=== PATIENT | male | born 1965 | race African-American/Black ===

== ENCOUNTER 2016-08-23 19:14 | Inpatient (IN) | payer OTHER ==
[2016-08-23 20:14] VITALS: BMI 24.3
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
[2016-08-23] MEDS ORDERED: MAGNESIUM HYDROX 2400MG/30ML ORAL SUSPENSION 30 ML CUP PO PRN (20:37)
[2016-08-23] MEDS ORDERED: MENTHOL/PHENOL 1 EACH UD MM PRN (20:37)
[2016-08-23] MEDS ORDERED: MAGNESIUM CITRATE 300 ML BOTTLE PO PRN (20:37)
[2016-08-23] MEDS ORDERED: chlordiazePOXIDE HCL 25 MG CAPSULE PO PRN (20:37)
[2016-08-23] MEDS ORDERED: hydrOXYzine PAMOATE 50 MG CAPSULE (FP) PO PRN (20:37)
[2016-08-23] MEDS ORDERED: IBUPROFEN 400 MG TABLET (FP) PO PRN (20:37)
[2016-08-23] MEDS ORDERED: NICOTINE POLACRILEX 2 MG GUM BC PRN (20:37)
[2016-08-23] MEDS ORDERED: diphenhydrAMINE HCL 50 MG CAPSULE PO PRN (20:37)
[2016-08-23] MEDS ORDERED: ACETAMINOPHEN 325 MG TABLET (FP) PO PRN (20:37)
[2016-08-23] MEDS ORDERED: P-EPHED 60MG/TRIPROLIDI 2.5MG TABLET PO PRN (20:37)
[2016-08-23] MEDS ORDERED: LOPERAMIDE HCL 2 MG CAPSULE PO PRN (20:37)
[2016-08-23] MEDS ORDERED: MAG HYDROX/AL HYDROX/SIMETH 30 ML UNIT-DOSE CUP PO PRN (20:37)
[2016-08-23 22:49] LABS: URINE APPEARANCE CLEAR; URINE BILIRUBIN NEGATIVE (NEGATIVE); URINE BLOOD 2+ (NEGATIVE); URINE COLOR DKYELLOW; URINE GLUCOSE (UA) NEGATIVE (NEGATIVE); URINE KETONE TRACE (NEGATIVE); URINE LEUK ESTERASE NEGATIVE (NEGATIVE); URINE NITRITE NEGATIVE (NEGATIVE); URINE PROTEIN 1+ (NEGATIVE); URINE UROBILINOGEN NEGATIVE E.U./dl (0.2-1.0)
[2016-08-23 22:52] LABS: URINE MUCUS MANY; URINE RBC 45 /hpf (0-3); URINE WBC 4 /hpf (3-5)
[2016-08-23] MEDS: chlordiazePOXIDE HCL 25 MG CAPSULE PO SCH (23:03)
[2016-08-23] MEDS: MONTELUKAST NA 10 MG TABLET PO SCH (23:04)
[2016-08-23] MEDS: THIAMINE HCL 100 MG TABLET (FP) PO SCH (23:04)
[2016-08-23] MEDS: NICOTINE 14 MG/24 HOURS TOPICAL PATCH TD SCH (23:05)
[2016-08-23] MEDS: guaiFENesin/D-METHORPHAN HB 10 ML UNIT-DOSE CUPS PO PRN (23:05)
[2016-08-24] MEDS: chlordiazePOXIDE HCL 25 MG CAPSULE PO SCH ×4 (05:13→22:30)
--- NOTE | 2016-08-24 08:34 | PN ---
S CIWA - CIWA Score Nausea/Vomitin Muscle Tremors: 3 Anxiety: 3 Agitation: 3 Paroxysmal Sweats: 1-Minimal Palms Moist Orientation: 0-Oriented Tacttile Disturbances: 1-Very Mild Itch/Numbness Auditory Disturbances: 1-Very Mild Visual Disturbances: 1-Very Mild Sensitivity Headache: 2-Mild CIWA-Ar Total Score: 18 S Progress Note (SOAP) Subjective: alert,irritable,anxious,interrupted sleep,tremor.pain in the body Objective: 08/24/16 08:29 Vital Signs Temperature 96.8 F L 08/24/16 06:12 Pulse Rate 51 L 08/24/16 06:12 Respiratory Rate 18 08/24/16 06:12 Blood Pressure 142/85 08/24/16 06:12 O2 Sat by Pulse Oximetry (%) ekg inverte p wave no chest pain,no sob,no dizziness 08/24/16 09:53 Laboratory Last Values Urine Color Dkyellow 08/23/16 22:28 Urine Appearance Clear 08/23/16 22:28 Urine pH 5.0 (5.0-8.0) 08/23/16 22:28 Urine Protein 1+ (NEGATIVE) H 08/23/16 22:28 Urine Glucose (UA) Negative (NEGATIVE) 08/23/16 22:28 Urine Ketones Trace (NEGATIVE) H 08/23/16 22:28 Urine Blood 2+ (NEGATIVE) H 08/23/16 22:28 Urine Nitrite Negative (NEGATIVE) 08/23/16 22:28 Urine Bilirubin Negative (NEGATIVE) 08/23/16 22:28 Urine Urobilinogen Negative E.U./dl (0.2-1.0) 08/23/16 22:28 Ur Leukocyte Esterase Negative (NEGATIVE) 08/23/16 22:28 Urine RBC 45 /hpf (0-3) 08/23/16 22:28 Urine WBC 4 /hpf (3-5) 08/23/16 22:28 Ur Epithelial Cells Rare /hpf (FEW) 08/23/16 22:28 Urine Mucus Many 08/23/16 22:28 labs pending Assessment: 08/24/16 09:54 withdrawal symptom Plan: continue detox,repeat ua
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
[2016-08-24 10:03] LABS: MCH 33.3 pg (25.7-33.7); MCHC 33.7 g/dl (32.0-35.9); MEAN CELL VOLUME 98.6 fl (80-96); MEAN PLT VOLUME 7.8 fl (7.5-11.1); PLATELET COUNT 177 K/MM3 (134-434); RDW 13.7 % (11.9-15.9); WHITE BLOOD COUNT 5.6 K/mm3 (4.0-10.0)
[2016-08-24 10:49] LABS: ALBUMIN 3.5 g/dl (3.4-5.0); ALK PHOS 67 U/L (45-117); ANION GAP 9 (8-16); BILIRUBIN,TOTAL 1.3 mg/dL (0.2-1.0); CALCIUM 8.5 mg/dL (8.5-10.1); CO2 25 mmol/L (21-32); COCKROFT - GAULT 175.55; CREATININE 0.6 mg/dL (0.7-1.3); GLUCOSE,RANDOM 81 mg/dL (74-106); SGOT/AST 65 U/L (15-37); SGPT/ALT 60 U/L (12-78)
[2016-08-24] MEDS: NICOTINE 14 MG/24 HOURS TOPICAL PATCH TD SCH (11:50)
[2016-08-24] MEDS: PRENATAL VITAMINS W/ FOLIC ACID TABLET (FP) PO SCH (11:51)
[2016-08-24] MEDS: PANTOPRAZOLE 20 MG TABLET (FP) PO SCH (11:51)
--- NOTE | 2016-08-24 12:50 | EKG ---
Test Reason : Blood Pressure : / mmHG Vent. Rate : 054 BPM Atrial Rate : 054 BPM P-R Int : 146 ms QRS Dur : 102 ms QT Int : 434 ms P-R-T Axes : 269 050 042 degrees QTc Int : 411 ms UNUSUAL P AXIS, POSSIBLE ECTOPIC ATRIAL BRADYCARDIA INCOMPLETE RIGHT BUNDLE BRANCH BLOCK ABNORMAL ECG NO PREVIOUS ECGS AVAILABLE Confirmed by GERSON FLEMING MD ([id number]) on 08/24/2016 12:49:51 PM Referred By: Confirmed By:GERSON FLEMING MD
[2016-08-24] MEDS: ALBUTEROL SO4 6.7 GM HFA INHALER IH PRN (19:46)
[2016-08-24] MEDS: THIAMINE HCL 100 MG TABLET (FP) PO SCH (22:31)
[2016-08-24] MEDS: MONTELUKAST NA 10 MG TABLET PO SCH (22:31)
[2016-08-25] MEDS: chlordiazePOXIDE HCL 25 MG CAPSULE PO SCH ×3 (05:58→17:35)
[2016-08-25] MEDS: ALBUTEROL SO4 6.7 GM HFA INHALER IH PRN ×2 (05:59→22:20)
[2016-08-25] MEDS: PRENATAL VITAMINS W/ FOLIC ACID TABLET (FP) PO SCH (11:21)
[2016-08-25] MEDS: PANTOPRAZOLE 20 MG TABLET (FP) PO SCH (11:21)
[2016-08-25] MEDS: NICOTINE 14 MG/24 HOURS TOPICAL PATCH TD SCH (11:22)
[2016-08-25] MEDS ORDERED: ALBUTEROL SO4 2.5/IPRATROPIUM 0.5 INH SOL 3 ML VIAL.NEB. NEB PRN (11:32)
--- NOTE | 2016-08-25 11:36 | PN ---
S CIWA - CIWA Score Nausea/Vomitin Muscle Tremors: 3 Anxiety: 3 Agitation: 2 Paroxysmal Sweats: 1-Minimal Palms Moist Orientation: 0-Oriented Tacttile Disturbances: 1-Very Mild Itch/Numbness Auditory Disturbances: 1-Very Mild Visual Disturbances: 1-Very Mild Sensitivity Headache: 2-Mild CIWA-Ar Total Score: 17 BHS Progress Note (SOAP) Subjective: ALERT,IRRITABLE,ANXIOUS,INTERRUPTED ,PAIN IN THE BODY Objective: 08/25/16 11:35 Vital Signs Temperature 97.5 F L 08/25/16 09:41 Pulse Rate 84 08/25/16 09:41 Respiratory Rate 18 08/25/16 09:41 Blood Pressure 131/84 08/25/16 09:41 O2 Sat by Pulse Oximetry (%) 08/25/16 11:36 Assessment: 08/25/16 11:36 WITHDRAWAL SYMPTOM Plan: REPEAT UA ,CONTINUE DETOX
[2016-08-25] MEDS: BUDESONIDE/FORMETEROL FUMARATE 80/4.5 mcg INHALER IH SCH ×2 (12:29→22:20)
[2016-08-25] MEDS: NAPROXEN 500 MG TABLET (FP) PO SCH ×2 (12:29→22:20)
[2016-08-25] MEDS: LISINOPRIL 10 MG TABLET (FP) PO SCH (13:03)
[2016-08-25] MEDS: MONTELUKAST NA 10 MG TABLET PO SCH (22:15)
[2016-08-25] MEDS: THIAMINE HCL 100 MG TABLET (FP) PO SCH (22:15)
[2016-08-25] MEDS: chlordiazePOXIDE 5 MG CAPSULE PO SCH (22:16)
[2016-08-26] MEDS: chlordiazePOXIDE 5 MG CAPSULE PO SCH (06:04)
[2016-08-26] MEDS: ALBUTEROL SO4 6.7 GM HFA INHALER IH PRN (06:09)
[2016-08-26] MEDS: guaiFENesin/D-METHORPHAN HB 10 ML UNIT-DOSE CUPS PO PRN (06:09)
--- NOTE | 2016-08-26 09:31 | PN ---
S Progress Note (SOAP) Subjective: alert,irritable,interrupted sleep,dry eye Objective: 08/26/16 09:30 Vital Signs Temperature 97.0 F L 08/26/16 06:50 Pulse Rate 62 08/26/16 06:50 Respiratory Rate 18 08/26/16 06:50 Blood Pressure 121/73 08/26/16 06:50 O2 Sat by Pulse Oximetry (%) Assessment: 08/26/16 09:30 withdrawal symptom Plan: continue detox,discharge in am
[2016-08-26] MEDS ORDERED: ARTIFICIAL TEARS (POLYVINYL ALCOHOL 1.4%) OPTH DROPS OU SCH (10:00)
[2016-08-26 10:11] VITALS: BP 116/73; PULSE 67; TEMP 97
[2016-08-26] MEDS: BUDESONIDE/FORMETEROL FUMARATE 80/4.5 mcg INHALER IH SCH (10:15)
[2016-08-26] MEDS: NICOTINE 14 MG/24 HOURS TOPICAL PATCH TD SCH (10:15)
[2016-08-26] MEDS: NAPROXEN 500 MG TABLET (FP) PO SCH (10:15)
[2016-08-26] MEDS: LISINOPRIL 10 MG TABLET (FP) PO SCH (10:15)
[2016-08-26] MEDS: PANTOPRAZOLE 20 MG TABLET (FP) PO SCH (10:15)
[2016-08-26] MEDS: PRENATAL VITAMINS W/ FOLIC ACID TABLET (FP) PO SCH (10:15)
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
[2016-08-26 17:10] LABS: URINE APPEARANCE CLEAR; URINE BILIRUBIN NEGATIVE (NEGATIVE); URINE BLOOD NEGATIVE (NEGATIVE); URINE COLOR LTYELLOW; URINE GLUCOSE (UA) NEGATIVE (NEGATIVE); URINE KETONE NEGATIVE (NEGATIVE); URINE LEUK ESTERASE NEGATIVE (NEGATIVE); URINE NITRITE NEGATIVE (NEGATIVE); URINE PROTEIN NEGATIVE (NEGATIVE); URINE UROBILINOGEN NEGATIVE E.U./dl (0.2-1.0)
[2016-08-26] MEDS ORDERED: chlordiazePOXIDE HCL 10 MG CAPSULE PO SCH (23:00)
== END 2016-08-26 10:40 | disposition home or self-care (01) | DRG 774 ==
LOC: YASAS 19:14 → Y6N 21:26
PROVIDERS: ADMIT Internal Medicine; ATTEND Internal Medicine
PROC: HZ2ZZZZ Detoxification Services for Substance Abuse Treatment (ICD-10-PCS; principal; 2016-08-23)
DX: F10.230 Alcohol dependence with withdrawal, uncomplicated (principal); F14.20 Cocaine dependence, uncomplicated; F12.20 Cannabis dependence, uncomplicated; F17.210 Nicotine dependence, cigarettes, uncomplicated; F91.8 Other conduct disorders; F19.24 Other psychoactive substance dependence with psychoactive substance-induced mood disorder; J45.20 Mild intermittent asthma, uncomplicated; K21.9 Gastro-esophageal reflux disease without esophagitis; H91.93 Unspecified hearing loss, bilateral
CPT/HCPCS: 36415; 71020-TC; 80053; 81003; 81015; 85027; 86593; 86803; 93005; 93010

== ENCOUNTER 2019-01-02 13:37 | Inpatient (IN) | payer OTHER ==
[2019-01-02 16:08] VITALS: BMI 23.2
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
[2019-01-02] MEDS ORDERED: METHOCARBAMOL 500 MG TABLET PO PRN (20:54)
[2019-01-02] MEDS ORDERED: ACETAMINOPHEN 325 MG TABLET (FP) PO PRN ×2 (20:54)
[2019-01-02] MEDS ORDERED: NICOTINE POLACRILEX 2 MG GUM BUC PRN (20:54)
[2019-01-02] MEDS ORDERED: IBUPROFEN 400 MG TABLET (FP) PO PRN (20:54)
[2019-01-02] MEDS ORDERED: MELATONIN 5 MG TABLETS PO PRN (20:54)
[2019-01-02] MEDS ORDERED: BISMUTH SUBSALICYLATE 524 MG/30 ML UD PO PRN (20:54)
[2019-01-02] MEDS ORDERED: chlordiazePOXIDE HCL 10 MG CAPSULE PO PRN (20:54)
[2019-01-02] MEDS ORDERED: MAGNESIUM HYDROX 2400MG/30ML ORAL SUSPENSION 30 ML CUP PO PRN (20:54)
[2019-01-02] MEDS ORDERED: MAG HYDROX/AL HYDROX/SIMETH 30 ML UNIT-DOSE CUP PO PRN (20:54)
[2019-01-02] MEDS ORDERED: MAGNESIUM CITRATE 300 ML BOTTLE PO PRN (20:54)
[2019-01-02] MEDS ORDERED: MENTHOL/PHENOL 1 EACH UD MM PRN (20:54)
[2019-01-02] MEDS: THIAMINE HCL 100 MG TABLET (FP) PO SCH (22:39)
[2019-01-02] MEDS: chlordiazePOXIDE HCL 25 MG CAPSULE PO SCH (22:39)
[2019-01-02] MEDS: MONTELUKAST NA 10 MG TABLET PO SCH (22:40)
[2019-01-02] MEDS ORDERED: ALBUTEROL SO4 8 GM HFA INHALER IH PRN (22:46)
[2019-01-03] MEDS: chlordiazePOXIDE HCL 25 MG CAPSULE PO SCH ×3 (05:10→22:16)
[2019-01-03] MEDS: PATIENT'S OWN MEDICATION (NON-FORMULARY) (Amoxicillin/Potassium Clav [Augmentin 875-125 Ta PO SCH ×2 (09:55→22:14)
[2019-01-03] MEDS: PANTOPRAZOLE 20 MG TABLET (FP) PO SCH (09:56)
[2019-01-03] MEDS: NICOTINE 14 MG/24 HOURS TOPICAL PATCH TD SCH (09:56)
[2019-01-03] MEDS: LOSARTAN POTASSIUM 25 MG TABLET PO SCH (09:56)
[2019-01-03] MEDS: PRENATAL VITAMINS W/ FOLIC ACID TABLET (FP) PO SCH (09:56)
[2019-01-03 10:01] LABS: EPI CELLS 0.2 /HPF (0-5/HPF); HYALINE CASTS 1 /lpf (0-8); PH,URINE 5.5 (5.0-8.0); URINE APPEARANCE CLEAR; URINE BACTERIA 1.4 /hpf (NEGATIVE); URINE BILIRUBIN NEGATIVE (NEGATIVE); URINE COLOR YELLOW; URINE GLUCOSE (UA) NEGATIVE (NEGATIVE); URINE KETONE NEGATIVE (NEGATIVE); URINE LEUK ESTERASE NEGATIVE (NEGATIVE); URINE NITRITE NEGATIVE (NEGATIVE); URINE PROTEIN NEGATIVE (NEGATIVE); URINE RBC 3 /hpf (0-4); URINE WBC 0 /hpf (0-5)
[2019-01-03 10:04] LABS: HEMATOCRIT 42.7 % (35.4-49); HEMOGLOBIN 14.4 GM/dL (11.7-16.9); MCH 33.6 pg (25.7-33.7); MCHC 33.8 g/dl (32.0-35.9); MEAN CELL VOLUME 99.4 fl (80-96); MEAN PLT VOLUME 8.6 fl (7.5-11.1); PLATELET COUNT 261 K/MM3 (134-434); RBC 4.29 M/mm3 (4.00-5.60); RDW 13.2 % (11.9-15.9); WHITE BLOOD COUNT 6.6 K/mm3 (4.0-10.0)
[2019-01-03] MEDS: ALBUTEROL SO4 8 GM HFA INHALER IH PRN ×2 (10:04→19:22)
[2019-01-03 10:12] LABS: ALBUMIN 3.8 g/dl (3.4-5.0); BILIRUBIN,TOTAL 0.7 mg/dL (0.2-1); BLOOD UREA NITROGEN 16.2 mg/dL (7-18); CALCIUM 9.2 mg/dL (8.5-10.1); CREATININE 0.8 mg/dL (0.55-1.3); POTASSIUM 4.3 mmol/L (3.5-5.1); TOT PROT 6.6 g/dl (6.4-8.2)
--- NOTE | 2019-01-03 12:11 | PN ---
[facility] CIWA - CIWA Score Nausea/Vomitin-Mild Nausea/No Vomiting Muscle Tremors: 3 Anxiety: 4-Mod. Anxious/Guarded Agitation: 2 Paroxysmal Sweats: 2 Orientation: 0-Oriented Tacttile Disturbances: 0-None Auditory Disturbances: 0-None Visual Disturbances: 0-None Headache: 1-Very Mild CIWA-Ar Total Score: 13 S Progress Note (SOAP) Subjective: doing well with librium detox regimen ambulating on hallway attend group and meeting tremor with mild anxiety Objective: 01/03/19 12:10 Vital Signs Temperature 97.3 F L 01/03/19 09:16 Pulse Rate 66 01/03/19 09:16 Respiratory Rate 18 01/03/19 09:16 Blood Pressure 124/79 01/03/19 09:16 O2 Sat by Pulse Oximetry (%) Laboratory Last Values WBC 6.6 K/mm3 (4.0-10.0) 01/03/19 08:15 RBC 4.29 M/mm3 (4.00-5.60) 01/03/19 08:15 Hgb 14.4 GM/dL (11.7-16.9) 01/03/19 08:15 Hct 42.7 % (35.4-49) 01/03/19 08:15 MCV 99.4 fl (80-96) H 01/03/19 08:15 MCH 33.6 pg (25.7-33.7) 01/03/19 08:15 MCHC 33.8 g/dl (32.0-35.9) 01/03/19 08:15 RDW 13.2 % (11.9-15.9) 01/03/19 08:15 Plt Count 261 K/MM3 (134-434) D 01/03/19 08:15 MPV 8.6 fl (7.5-11.1) D 01/03/19 08:15 Sodium 141 mmol/L (136-145) 01/03/19 08:15 Potassium 4.3 mmol/L (3.5-5.1) 01/03/19 08:15 Chloride 106 mmol/L (98-107) 01/03/19 08:15 Carbon Dioxide 28 mmol/L (21-32) 01/03/19 08:15 Anion Gap 6 MMOL/L (8-16) L 01/03/19 08:15 BUN 16.2 mg/dL (7-18) 01/03/19 08:15 Creatinine 0.8 mg/dL (0.55-1.3) 01/03/19 08:15 Est GFR (CKD-EPI)AfAm 117.38 01/03/19 08:15 Est GFR (CKD-EPI)NonAf 101.27 01/03/19 08:15 Random Glucose 55 mg/dL (74-106) L 01/03/19 08:15 Calcium 9.2 mg/dL (8.5-10.1) 01/03/19 08:15 Total Bilirubin 0.7 mg/dL (0.2-1) 01/03/19 08:15 AST 17 U/L (15-37) 01/03/19 08:15 ALT 27 U/L (13-61) 01/03/19 08:15 Alkaline Phosphatase 76 U/L (45-117) 01/03/19 08:15 Total Protein 6.6 g/dl (6.4-8.2) 01/03/19 08:15 Albumin 3.8 g/dl (3.4-5.0) 01/03/19 08:15 Urine Color Yellow 01/03/19 08:15 Urine Appearance Clear 01/03/19 08:15 Urine pH 5.5 (5.0-8.0) 01/03/19 08:15 Ur Specific [place] 1.022 (1.010-1.035) 01/03/19 08:15 Urine Protein Negative (NEGATIVE) 01/03/19 08:15 Urine Glucose (UA) Negative (NEGATIVE) 01/03/19 08:15 Urine Ketones Negative (NEGATIVE) 01/03/19 08:15 Urine Blood 1+ (NEGATIVE) H 01/03/19 08:15 Urine Nitrite Negative (NEGATIVE) 01/03/19 08:15 Urine Bilirubin Negative (NEGATIVE) 01/03/19 08:15 Urine Urobilinogen 1.0 mg/dL (0.2-1.0) 01/03/19 08:15 Ur Leukocyte Esterase Negative (NEGATIVE) 01/03/19 08:15 Urine WBC (Auto) 0 /hpf (0-5) 01/03/19 08:15 Urine RBC (Auto) 3 /hpf (0-4) 01/03/19 08:15 Urine Casts (Auto) 1 /lpf (0-8) 01/03/19 08:15 U Epithel Cells (Auto) 0.2 /HPF (0-5/HPF) 01/03/19 08:15 Urine Bacteria (Auto) 1.4 /hpf (NEGATIVE) 01/03/19 08:15 lab noted Assessment: 01/03/19 12:11 alcohol withdrawal sx Plan: continue librium detox regimen
[2019-01-03] MEDS: guaiFENesin 600 MG TABLET.ER (FP) PO SCH ×2 (13:30→22:15)
--- NOTE | 2019-01-03 13:37 | EKG ---
Test Reason : Blood Pressure : / mmHG Vent. Rate : 061 BPM Atrial Rate : 061 BPM P-R Int : 142 ms QRS Dur : 104 ms QT Int : 428 ms P-R-T Axes : 009 032 006 degrees QTc Int : 430 ms NORMAL SINUS RHYTHM WITH SINUS ARRHYTHMIA INCOMPLETE RIGHT BUNDLE BRANCH BLOCK BORDERLINE ECG WHEN COMPARED WITH ECG OF 23-AUG-2016 22:08, SINUS RHYTHM HAS REPLACED ECTOPIC ATRIAL RHYTHM Confirmed by MICHAEL MORILLO, NEREYDA ([id number]) on 01/03/2019 1:36:50 PM Referred By: Confirmed By:NEREYDA RODRIGUEZ MD
[2019-01-03] MEDS: MONTELUKAST NA 10 MG TABLET PO SCH (22:15)
[2019-01-03] MEDS: THIAMINE HCL 100 MG TABLET (FP) PO SCH (22:15)
[2019-01-04] MEDS: ALBUTEROL SO4 8 GM HFA INHALER IH PRN (03:45)
[2019-01-04] MEDS: chlordiazePOXIDE 5 MG CAPSULE PO SCH ×3 (06:43→21:55)
[2019-01-04] MEDS: PATIENT'S OWN MEDICATION (NON-FORMULARY) (Amoxicillin/Potassium Clav [Augmentin 875-125 Ta PO SCH ×2 (10:08→21:55)
[2019-01-04] MEDS: PANTOPRAZOLE 20 MG TABLET (FP) PO SCH (10:08)
[2019-01-04] MEDS: PRENATAL VITAMINS W/ FOLIC ACID TABLET (FP) PO SCH (10:08)
[2019-01-04] MEDS: LOSARTAN POTASSIUM 25 MG TABLET PO SCH (10:09)
[2019-01-04] MEDS: NICOTINE 14 MG/24 HOURS TOPICAL PATCH TD SCH (10:09)
[2019-01-04] MEDS: BUDESONIDE/FORMETEROL FUMARATE 80/4.5 mcg INHALER IH SCH ×2 (11:38→21:55)
[2019-01-04] MEDS: guaiFENesin 200 MG/10 ML 10 ML UNIT-DOSE CUPS PO PRN ×2 (11:39→17:43)
[2019-01-04] MEDS: ARTIFICIAL TEARS (POLYVINYL ALCOHOL) OPTH DROPS OU PRN ×2 (11:39→17:44)
--- NOTE | 2019-01-04 16:44 | PN ---
S CIWA - CIWA Score Nausea/Vomitin-No Nausea/No Vomiting Muscle Tremors: 2 Anxiety: 3 Agitation: 4-Moderately Restless Paroxysmal Sweats: 3 Orientation: 0-Oriented Tacttile Disturbances: 0-None Auditory Disturbances: 0-None Visual Disturbances: 0-None Headache: 0-None Present CIWA-Ar Total Score: 12 BHS Progress Note (SOAP) Subjective: Anxious, Tremors, Sweating, Restless. Objective: PATIENT A & O X 3, OBSERVED AMBULATING ON DETOX UNIT UNASSISTED. IN NO ACUTE DISTRESS. 01/04/19 16:45 Vital Signs Temperature 97.0 F L 01/04/19 13:26 Pulse Rate 60 01/04/19 13:26 Respiratory Rate 18 01/04/19 13:26 Blood Pressure 113/67 01/04/19 13:26 O2 Sat by Pulse Oximetry (%) Laboratory Tests 01/03/19 01/03/19 01/03/19 08:15 08:15 08:15 WBC 6.6 RBC 4.29 Hgb 14.4 Hct 42.7 MCV 99.4 H MCH 33.6 MCHC 33.8 RDW 13.2 Plt Count 261 D MPV 8.6 D Sodium 141 Potassium 4.3 Chloride 106 Carbon Dioxide 28 Anion Gap 6 L BUN 16.2 Creatinine 0.8 Est GFR (CKD-EPI)AfAm 117.38 Est GFR (CKD-EPI)NonAf 101.27 Random Glucose 55 L Calcium 9.2 Total Bilirubin 0.7 AST 17 ALT 27 Alkaline Phosphatase 76 Total Protein 6.6 Albumin 3.8 Urine Color Urine Appearance Urine pH Ur Specific [place] Urine Protein Urine Glucose (UA) Urine Ketones Urine Blood Urine Nitrite Urine Bilirubin Urine Urobilinogen Ur Leukocyte Esterase Urine WBC (Auto) Urine RBC (Auto) Urine Casts (Auto) U Epithel Cells (Auto) Urine Bacteria (Auto) RPR Titer Nonreactive 01/03/19 08:15 WBC RBC Hgb Hct MCV MCH MCHC RDW Plt Count MPV Sodium Potassium Chloride Carbon Dioxide Anion Gap BUN Creatinine Est GFR (CKD-EPI)AfAm Est GFR (CKD-EPI)NonAf Random Glucose Calcium Total Bilirubin AST ALT Alkaline Phosphatase Total Protein Albumin Urine Color Yellow Urine Appearance Clear Urine pH 5.5 Ur Specific [place] 1.022 Urine Protein Negative Urine Glucose (UA) Negative Urine Ketones Negative Urine Blood 1+ H Urine Nitrite Negative Urine Bilirubin Negative Urine Urobilinogen 1.0 Ur Leukocyte Esterase Negative Urine WBC (Auto) 0 Urine RBC (Auto) 3 Urine Casts (Auto) 1 U Epithel Cells (Auto) 0.2 Urine Bacteria (Auto) 1.4 RPR Titer LABS NOTED. Assessment: 01/04/19 16:45 WITHDRAWAL SYMPTOMS. Plan: CONTINUE DETOX. INCREASE DAILY PO WATER INTAKE.
[2019-01-04] MEDS: MONTELUKAST NA 10 MG TABLET PO SCH (21:55)
[2019-01-04] MEDS: THIAMINE HCL 100 MG TABLET (FP) PO SCH (21:56)
[2019-01-05] MEDS ORDERED: chlordiazePOXIDE HCL 10 MG CAPSULE PO PRN
[2019-01-05] MEDS: ARTIFICIAL TEARS (POLYVINYL ALCOHOL) OPTH DROPS OU PRN ×3 (03:39→18:23)
[2019-01-05] MEDS: guaiFENesin 200 MG/10 ML 10 ML UNIT-DOSE CUPS PO PRN ×2 (03:39→14:43)
[2019-01-05] MEDS: ALBUTEROL SO4 8 GM HFA INHALER IH PRN ×4 (03:40→18:25)
[2019-01-05] MEDS: chlordiazePOXIDE HCL 10 MG CAPSULE PO SCH ×3 (05:00→22:42)
[2019-01-05] MEDS: PATIENT'S OWN MEDICATION (NON-FORMULARY) (Amoxicillin/Potassium Clav [Augmentin 875-125 Ta PO SCH ×2 (10:12→22:42)
[2019-01-05] MEDS: LOSARTAN POTASSIUM 25 MG TABLET PO SCH (10:13)
[2019-01-05] MEDS: PANTOPRAZOLE 20 MG TABLET (FP) PO SCH (10:13)
[2019-01-05] MEDS: NICOTINE 14 MG/24 HOURS TOPICAL PATCH TD SCH (10:13)
[2019-01-05] MEDS: BUDESONIDE/FORMETEROL FUMARATE 80/4.5 mcg INHALER IH SCH ×2 (10:14→22:42)
[2019-01-05] MEDS: PRENATAL VITAMINS W/ FOLIC ACID TABLET (FP) PO SCH (10:14)
[2019-01-05] MEDS: AMMONIUM LACTATE 12% LOTION 225 GM BOTTLE TP SCH ×2 (11:52→22:42)
--- NOTE | 2019-01-05 17:06 | PN ---
S CIWA - CIWA Score Nausea/Vomitin-No Nausea/No Vomiting Muscle Tremors: 3 Anxiety: 2 Agitation: 2 Paroxysmal Sweats: 3 Orientation: 0-Oriented Tacttile Disturbances: 0-None Auditory Disturbances: 0-None Visual Disturbances: 0-None Headache: 0-None Present CIWA-Ar Total Score: 10 BHS Progress Note (SOAP) Subjective: Anxious, Tremors, Sweating. Objective: PATIENT A & O X 3, OBSERVED AMBULATING ON DETOX UNIT UNASSISTED. IN NO ACUTE DISTRESS. RESULTS OF DETOX ADMISSION CXR (FOR HISTORY OF POSITIVE PPD) NOTED. NO ACUTE CHEST PATHOLOGY NOTED ON REPORT. 01/05/19 17:09 Vital Signs Temperature 96.2 F L 01/05/19 09:53 Pulse Rate 70 01/05/19 09:53 Respiratory Rate 18 01/05/19 09:53 Blood Pressure 118/67 01/05/19 09:53 O2 Sat by Pulse Oximetry (%) Laboratory Tests 01/03/19 01/03/19 01/03/19 08:15 08:15 08:15 WBC 6.6 RBC 4.29 Hgb 14.4 Hct 42.7 MCV 99.4 H MCH 33.6 MCHC 33.8 RDW 13.2 Plt Count 261 D MPV 8.6 D Sodium 141 Potassium 4.3 Chloride 106 Carbon Dioxide 28 Anion Gap 6 L BUN 16.2 Creatinine 0.8 Est GFR (CKD-EPI)AfAm 117.38 Est GFR (CKD-EPI)NonAf 101.27 Random Glucose 55 L Calcium 9.2 Total Bilirubin 0.7 AST 17 ALT 27 Alkaline Phosphatase 76 Total Protein 6.6 Albumin 3.8 Urine Color Urine Appearance Urine pH Ur Specific [place] Urine Protein Urine Glucose (UA) Urine Ketones Urine Blood Urine Nitrite Urine Bilirubin Urine Urobilinogen Ur Leukocyte Esterase Urine WBC (Auto) Urine RBC (Auto) Urine Casts (Auto) U Epithel Cells (Auto) Urine Bacteria (Auto) RPR Titer Nonreactive 01/03/19 08:15 WBC RBC Hgb Hct MCV MCH MCHC RDW Plt Count MPV Sodium Potassium Chloride Carbon Dioxide Anion Gap BUN Creatinine Est GFR (CKD-EPI)AfAm Est GFR (CKD-EPI)NonAf Random Glucose Calcium Total Bilirubin AST ALT Alkaline Phosphatase Total Protein Albumin Urine Color Yellow Urine Appearance Clear Urine pH 5.5 Ur Specific [place] 1.022 Urine Protein Negative Urine Glucose (UA) Negative Urine Ketones Negative Urine Blood 1+ H Urine Nitrite Negative Urine Bilirubin Negative Urine Urobilinogen 1.0 Ur Leukocyte Esterase Negative Urine WBC (Auto) 0 Urine RBC (Auto) 3 Urine Casts (Auto) 1 U Epithel Cells (Auto) 0.2 Urine Bacteria (Auto) 1.4 RPR Titer LABS NOTED. 01/05/19 17:11 01/05/19 17:12 Assessment: 01/05/19 17:09 WITHDRAWAL SYMPTOMS. Plan: CONTINUE DETOX.
[2019-01-05] MEDS: THIAMINE HCL 100 MG TABLET (FP) PO SCH (22:42)
[2019-01-05] MEDS: MONTELUKAST NA 10 MG TABLET PO SCH (22:42)
[2019-01-06] MEDS: ALBUTEROL SO4 8 GM HFA INHALER IH PRN (02:14)
[2019-01-06] MEDS: guaiFENesin 200 MG/10 ML 10 ML UNIT-DOSE CUPS PO PRN ×2 (02:14→10:43)
[2019-01-06] MEDS: ARTIFICIAL TEARS (POLYVINYL ALCOHOL) OPTH DROPS OU PRN (02:16)
[2019-01-06] MEDS ORDERED: chlordiazePOXIDE HCL 10 MG CAPSULE PO ONE (05:00)
[2019-01-06] MEDS: LOSARTAN POTASSIUM 25 MG TABLET PO SCH (10:25)
[2019-01-06] MEDS: PANTOPRAZOLE 20 MG TABLET (FP) PO SCH (10:25)
[2019-01-06] MEDS: PRENATAL VITAMINS W/ FOLIC ACID TABLET (FP) PO SCH (10:25)
[2019-01-06] MEDS: PATIENT'S OWN MEDICATION (NON-FORMULARY) (Amoxicillin/Potassium Clav [Augmentin 875-125 Ta PO SCH (10:25)
[2019-01-06] MEDS: AMMONIUM LACTATE 12% LOTION 225 GM BOTTLE TP SCH (10:27)
[2019-01-06] MEDS: BUDESONIDE/FORMETEROL FUMARATE 80/4.5 mcg INHALER IH SCH (11:13)
[2019-01-06] MEDS: NICOTINE 14 MG/24 HOURS TOPICAL PATCH TD SCH (11:13)
--- NOTE | 2019-01-06 11:18 | PN ---
[facility] CIWA - CIWA Score Nausea/Vomitin-Mild Nausea/No Vomiting Muscle Tremors: 3 Anxiety: 2 Agitation: 2 Paroxysmal Sweats: 2 Orientation: 1-Uncertain about Date Tacttile Disturbances: 0-None Auditory Disturbances: 0-None Visual Disturbances: 0-None Headache: 1-Very Mild CIWA-Ar Total Score: 12 S Progress Note (SOAP) Subjective: 53 years old male admitted on 01/02/19 for alcohol withdrawal sx management treated with librium detox regimen patient tolerate well at this time patient continue experiencing alcohol withdrawal sx today additional librium 5 mg po Objective: 01/06/19 11:17 Vital Signs Temperature 96.7 F L 01/06/19 09:15 Pulse Rate 72 01/06/19 09:15 Respiratory Rate 18 01/06/19 09:15 Blood Pressure 115/77 01/06/19 09:15 O2 Sat by Pulse Oximetry (%) Laboratory Last Values WBC 6.6 K/mm3 (4.0-10.0) 01/03/19 08:15 RBC 4.29 M/mm3 (4.00-5.60) 01/03/19 08:15 Hgb 14.4 GM/dL (11.7-16.9) 01/03/19 08:15 Hct 42.7 % (35.4-49) 01/03/19 08:15 MCV 99.4 fl (80-96) H 01/03/19 08:15 MCH 33.6 pg (25.7-33.7) 01/03/19 08:15 MCHC 33.8 g/dl (32.0-35.9) 01/03/19 08:15 RDW 13.2 % (11.9-15.9) 01/03/19 08:15 Plt Count 261 K/MM3 (134-434) D 01/03/19 08:15 MPV 8.6 fl (7.5-11.1) D 01/03/19 08:15 Sodium 141 mmol/L (136-145) 01/03/19 08:15 Potassium 4.3 mmol/L (3.5-5.1) 01/03/19 08:15 Chloride 106 mmol/L (98-107) 01/03/19 08:15 Carbon Dioxide 28 mmol/L (21-32) 01/03/19 08:15 Anion Gap 6 MMOL/L (8-16) L 01/03/19 08:15 BUN 16.2 mg/dL (7-18) 01/03/19 08:15 Creatinine 0.8 mg/dL (0.55-1.3) 01/03/19 08:15 Est GFR (CKD-EPI)AfAm 117.38 01/03/19 08:15 Est GFR (CKD-EPI)NonAf 101.27 01/03/19 08:15 Random Glucose 55 mg/dL (74-106) L 01/03/19 08:15 Calcium 9.2 mg/dL (8.5-10.1) 01/03/19 08:15 Total Bilirubin 0.7 mg/dL (0.2-1) 01/03/19 08:15 AST 17 U/L (15-37) 01/03/19 08:15 ALT 27 U/L (13-61) 01/03/19 08:15 Alkaline Phosphatase 76 U/L (45-117) 01/03/19 08:15 Total Protein 6.6 g/dl (6.4-8.2) 01/03/19 08:15 Albumin 3.8 g/dl (3.4-5.0) 01/03/19 08:15 Urine Color Yellow 01/03/19 08:15 Urine Appearance Clear 01/03/19 08:15 Urine pH 5.5 (5.0-8.0) 01/03/19 08:15 Ur Specific [place] 1.022 (1.010-1.035) 01/03/19 08:15 Urine Protein Negative (NEGATIVE) 01/03/19 08:15 Urine Glucose (UA) Negative (NEGATIVE) 01/03/19 08:15 Urine Ketones Negative (NEGATIVE) 01/03/19 08:15 Urine Blood 1+ (NEGATIVE) H 01/03/19 08:15 Urine Nitrite Negative (NEGATIVE) 01/03/19 08:15 Urine Bilirubin Negative (NEGATIVE) 01/03/19 08:15 Urine Urobilinogen 1.0 mg/dL (0.2-1.0) 01/03/19 08:15 Ur Leukocyte Esterase Negative (NEGATIVE) 01/03/19 08:15 Urine WBC (Auto) 0 /hpf (0-5) 01/03/19 08:15 Urine RBC (Auto) 3 /hpf (0-4) 01/03/19 08:15 Urine Casts (Auto) 1 /lpf (0-8) 01/03/19 08:15 U Epithel Cells (Auto) 0.2 /HPF (0-5/HPF) 01/03/19 08:15 Urine Bacteria (Auto) 1.4 /hpf (NEGATIVE) 01/03/19 08:15 RPR Titer Nonreactive (NONREACTIVE) 01/03/19 08:15 lab noted Assessment: 01/06/19 11:18 alcohol withdrawal sx Plan: continue librium detox regimen
[2019-01-06 13:03] VITALS: BP 125/85; PULSE 67; TEMP 97.7
--- NOTE | 2019-01-06 13:07 | DS ---
[facility] Detox Discharge Summary Admission Date: 01/02/19 Discharge Date: 01/06/19 - History Present History: Alcohol Dependence Additional Comments: after lunch patient feeling better discuss [facility] after[facility] with counselor [facility] available today that the patient prefers to be transferred to [facility] today to learn craving coping patient is alert oriented x 2 disoriented to date of the week re oriented week of the date respiratory clear lung bilaterally on auscultation abdomen soft no rebound tenderness skin warm dry - Physical Exam Results Vital Signs: Vital Signs Temperature 97.7 F 01/06/19 13:02 Pulse Rate 67 01/06/19 13:02 Respiratory Rate 18 01/06/19 13:02 Blood Pressure 125/85 01/06/19 13:02 O2 Sat by Pulse Oximetry (%) Pertinent Admission Physical Exam Findings: alcohol withdrawal sx Laboratory Last Values WBC 6.6 K/mm3 (4.0-10.0) 01/03/19 08:15 RBC 4.29 M/mm3 (4.00-5.60) 01/03/19 08:15 Hgb 14.4 GM/dL (11.7-16.9) 01/03/19 08:15 Hct 42.7 % (35.4-49) 01/03/19 08:15 MCV 99.4 fl (80-96) H 01/03/19 08:15 MCH 33.6 pg (25.7-33.7) 01/03/19 08:15 MCHC 33.8 g/dl (32.0-35.9) 01/03/19 08:15 RDW 13.2 % (11.9-15.9) 01/03/19 08:15 Plt Count 261 K/MM3 (134-434) D 01/03/19 08:15 MPV 8.6 fl (7.5-11.1) D 01/03/19 08:15 Sodium 141 mmol/L (136-145) 01/03/19 08:15 Potassium 4.3 mmol/L (3.5-5.1) 01/03/19 08:15 Chloride 106 mmol/L (98-107) 01/03/19 08:15 Carbon Dioxide 28 mmol/L (21-32) 01/03/19 08:15 Anion Gap 6 MMOL/L (8-16) L 01/03/19 08:15 BUN 16.2 mg/dL (7-18) 01/03/19 08:15 Creatinine 0.8 mg/dL (0.55-1.3) 01/03/19 08:15 Est GFR (CKD-EPI)AfAm 117.38 01/03/19 08:15 Est GFR (CKD-EPI)NonAf 101.27 01/03/19 08:15 Random Glucose 55 mg/dL (74-106) L 01/03/19 08:15 Calcium 9.2 mg/dL (8.5-10.1) 01/03/19 08:15 Total Bilirubin 0.7 mg/dL (0.2-1) 01/03/19 08:15 AST 17 U/L (15-37) 01/03/19 08:15 ALT 27 U/L (13-61) 01/03/19 08:15 Alkaline Phosphatase 76 U/L (45-117) 01/03/19 08:15 Total Protein 6.6 g/dl (6.4-8.2) 01/03/19 08:15 Albumin 3.8 g/dl (3.4-5.0) 01/03/19 08:15 Urine Color Yellow 01/03/19 08:15 Urine Appearance Clear 01/03/19 08:15 Urine pH 5.5 (5.0-8.0) 01/03/19 08:15 Ur Specific [place] 1.022 (1.010-1.035) 01/03/19 08:15 Urine Protein Negative (NEGATIVE) 01/03/19 08:15 Urine Glucose (UA) Negative (NEGATIVE) 01/03/19 08:15 Urine Ketones Negative (NEGATIVE) 01/03/19 08:15 Urine Blood 1+ (NEGATIVE) H 01/03/19 08:15 Urine Nitrite Negative (NEGATIVE) 01/03/19 08:15 Urine Bilirubin Negative (NEGATIVE) 01/03/19 08:15 Urine Urobilinogen 1.0 mg/dL (0.2-1.0) 01/03/19 08:15 Ur Leukocyte Esterase Negative (NEGATIVE) 01/03/19 08:15 Urine WBC (Auto) 0 /hpf (0-5) 01/03/19 08:15 Urine RBC (Auto) 3 /hpf (0-4) 01/03/19 08:15 Urine Casts (Auto) 1 /lpf (0-8) 01/03/19 08:15 U Epithel Cells (Auto) 0.2 /HPF (0-5/HPF) 01/03/19 08:15 Urine Bacteria (Auto) 1.4 /hpf (NEGATIVE) 01/03/19 08:15 RPR Titer Nonreactive (NONREACTIVE) 01/03/19 08:15 lab noted - Treatment Hospital Course: Detox Protocol Followed, Detoxed Safely, Responded well, Discharged Condition Good, Rehab Referral Accepted Patient has Accepted a Rehab Referral to: [facility] - Medication Discharge Medications: Ambulatory Orders Thiamine Mononitrate [Vitamin B-1] 100 mg PO DAILY 02/23/16 Dextran 70/Hypromellose/Pf [Artificial Tears Drops] 2 each OS BID #1 droperette 03/21/16 Pantoprazole Sodium [Protonix -] 20 mg PO DAILY tab 08/26/16 Amoxicillin/Potassium Clav [Augmentin 875-125 Tablet] 1 each PO BID 01/02/19 Albuterol Sulfate Inhaler - [Ventolin HFA Inhaler -] 2 inh PO Q4H PRN #1 inhaler 01/06/19 Budesonide/Formeterol Fumarate [SYMBICORT 80/4.5mcg -] 2 puff IH BID #1 inhaler 01/06/19 Losartan Potassium [Cozaar -] 25 mg PO DAILY #14 tablet 01/06/19 Montelukast Na [Singulair -] 10 mg PO HS #30 tablet 01/06/19 - Diagnosis (1) Alcohol dependence with uncomplicated withdrawal Current Visit: Yes Status: Acute (2) Asthma Current Visit: Yes Status: Chronic Qualifiers: Asthma severity: mild Asthma persistence: intermittent Asthma complication type: with status asthmaticus Qualified Code(s): J45.22 - Mild intermittent asthma with status asthmaticus (3) GERD (gastroesophageal reflux disease) Current Visit: Yes Status: Chronic Qualifiers: Esophagitis presence: without esophagitis Qualified Code(s): K21.9 - Gastro -esophageal reflux disease without esophagitis (4) Nicotine dependence Current Visit: Yes Status: Acute Qualifiers: Nicotine product type: cigarettes Substance use status: in withdrawal Qualified Code(s): F17.213 - Nicotine dependence, cigarettes, with withdrawal (5) Drug-induced mood disorder Current Visit: Yes Status: Suspected (6) Positive PPD Current Visit: Yes Status: Resolved - AMA Did Patient Leave Against Medical Advice: No CIWA Score - CIWA Score Nausea/Vomitin-No Nausea/No Vomiting Muscle Tremors: 2 Anxiety: 1-Mildly Anxious Agitation: 1-Slight > Activity Paroxysmal Sweats: 1-Minimal Palms Moist Orientation: 1-Uncertain about Date Tacttile Disturbances: 0-None Auditory Disturbances: 0-None Visual Disturbances: 0-None Headache: 1-Very Mild CIWA-Ar Total Score: 7
[2019-01-07] MEDS ORDERED: chlordiazePOXIDE 5 MG CAPSULE PO ONE (08:00)
== END 2019-01-06 14:15 | disposition other institution (70) | DRG 774 ==
LOC: YASAS 13:37 → Y3N 20:36
PROVIDERS: ADMIT Allergy & Immunology; ATTEND Allergy & Immunology
PROC: HZ2ZZZZ Detoxification Services for Substance Abuse Treatment (ICD-10-PCS; principal; 2019-01-02)
DX: F10.230 Alcohol dependence with withdrawal, uncomplicated (principal); F14.20 Cocaine dependence, uncomplicated; F12.20 Cannabis dependence, uncomplicated; F17.213 Nicotine dependence, cigarettes, with withdrawal; F19.24 Other psychoactive substance dependence with psychoactive substance-induced mood disorder; I10 Essential (primary) hypertension; J45.22 Mild intermittent asthma with status asthmaticus; K21.9 Gastro-esophageal reflux disease without esophagitis; H91.92 Unspecified hearing loss, left ear; R76.11 Nonspecific reaction to tuberculin skin test without active tuberculosis; Z88.2 Allergy status to sulfonamides; Z88.8 Allergy status to other drugs, medicaments and biological substances
CPT/HCPCS: 36415; 71046-TC-FY; 80053; 81003; 85027; 86593; 93005; 93010

== ENCOUNTER 2019-01-06 14:38 | Inpatient (IN) | payer OTHER ==
[2019-01-06] MEDS ORDERED: MAG HYDROX/AL HYDROX/SIMETH 30 ML UNIT-DOSE CUP PO PRN (15:40)
[2019-01-06] MEDS ORDERED: IBUPROFEN 400 MG TABLET (FP) PO PRN (15:40)
[2019-01-06] MEDS ORDERED: ACETAMINOPHEN 325 MG TABLET (FP) PO PRN (15:40)
[2019-01-06] MEDS ORDERED: MAGNESIUM HYDROX 2400MG/30ML ORAL SUSPENSION 30 ML CUP PO PRN (15:40)
[2019-01-06] MEDS ORDERED: MAGNESIUM CITRATE 300 ML BOTTLE PO PRN (15:40)
[2019-01-06] MEDS ORDERED: MENTHOL/PHENOL 1 EACH UD MM PRN (15:40)
[2019-01-06] MEDS ORDERED: P-EPHED 60MG/TRIPROLIDI 2.5MG TABLET PO PRN (15:40)
[2019-01-06] MEDS ORDERED: LOPERAMIDE HCL 2 MG CAPSULE PO PRN (15:40)
--- NOTE | 2019-01-06 15:40 | HP ---
JUANITA MORILLO Rehab Assess/Revision - Admission History Admitted to Rehab from: [facility] Date of Admission to Rehab: 01/06/19 - Findings Detox History & Physical reviewed: Yes Concur with findings: Yes Comments/Additional Findings: transferred from detox to rehab admission as per protocol Inpatient Rehab Admission - Rehab Decision to Admit Inpatient rehab admission?: Yes - Initial Determination Are CD services needed?: Yes Free of communicable disease: Yes Not in need of hospitalization: Yes - Rehab Admission Criteria Previous failed treatment: Yes Poor recovery environment: Yes Comorbidities: Yes Lacks judgement: Yes Patient is meeting Inpatient Rehab admission criteria:: Yes
[2019-01-06] MEDS: THIAMINE HCL 100 MG TABLET (FP) PO SCH (21:29)
[2019-01-06] MEDS: MONTELUKAST NA 10 MG TABLET PO SCH (21:29)
[2019-01-06] MEDS: BUDESONIDE/FORMETEROL FUMARATE 80/4.5 mcg INHALER IH SCH (21:30)
[2019-01-06] MEDS ORDERED: MELATONIN 5 MG TABLETS PO PRN (22:00)
[2019-01-07] MEDS: guaiFENesin 200 MG/10 ML 10 ML UNIT-DOSE CUPS PO PRN ×3 (02:20→21:32)
[2019-01-07] MEDS: ALBUTEROL SO4 8 GM HFA INHALER IH PRN ×3 (02:21→21:34)
[2019-01-07] MEDS: PANTOPRAZOLE 20 MG TABLET (FP) PO SCH (10:16)
[2019-01-07] MEDS: LOSARTAN POTASSIUM 25 MG TABLET PO SCH (10:16)
[2019-01-07] MEDS: PRENATAL VITAMINS W/ FOLIC ACID TABLET (FP) PO SCH (10:16)
[2019-01-07] MEDS: NICOTINE 14 MG/24 HOURS TOPICAL PATCH TD PRN (10:19)
[2019-01-07] MEDS: BUDESONIDE/FORMETEROL FUMARATE 80/4.5 mcg INHALER IH SCH ×2 (10:21→21:28)
[2019-01-07] MEDS ORDERED: AMOX TR/POT CLAV 875MG/125MG TABLETS (FP) PO ONE ×2 (12:09→22:00)
[2019-01-07] MEDS: AMMONIUM LACTATE 12% LOTION 225 GM BOTTLE TP SCH (12:29)
[2019-01-07] MEDS: THIAMINE HCL 100 MG TABLET (FP) PO SCH (21:26)
[2019-01-07] MEDS: MONTELUKAST NA 10 MG TABLET PO SCH (21:26)
[2019-01-07] MEDS: NICOTINE POLACRILEX 2 MG GUM BC PRN (21:33)
[2019-01-08] MEDS: guaiFENesin 200 MG/10 ML 10 ML UNIT-DOSE CUPS PO PRN ×2 (06:46→21:21)
[2019-01-08] MEDS: ALBUTEROL SO4 8 GM HFA INHALER IH PRN ×3 (06:47→21:21)
[2019-01-08] MEDS: BUDESONIDE/FORMETEROL FUMARATE 80/4.5 mcg INHALER IH SCH ×2 (10:18→21:20)
[2019-01-08] MEDS: PRENATAL VITAMINS W/ FOLIC ACID TABLET (FP) PO SCH (10:18)
[2019-01-08] MEDS: PANTOPRAZOLE 20 MG TABLET (FP) PO SCH (10:18)
[2019-01-08] MEDS: AMMONIUM LACTATE 12% LOTION 225 GM BOTTLE TP SCH (10:19)
[2019-01-08] MEDS: TETRAHYDROZOLINE HCL EYE DROPS OD PRN ×2 (10:21→21:21)
[2019-01-08] MEDS: NICOTINE 14 MG/24 HOURS TOPICAL PATCH TD PRN (10:22)
[2019-01-08] MEDS: NICOTINE POLACRILEX 2 MG GUM BC PRN (10:25)
[2019-01-08] MEDS: LOSARTAN POTASSIUM 25 MG TABLET PO SCH (12:36)
[2019-01-08 12:51] LABS: EPI CELLS 0.2 /HPF (0-5/HPF); HYALINE CASTS 0 /lpf (0-8); URINE APPEARANCE CLEAR; URINE BACTERIA 0.5 /hpf (NEGATIVE); URINE BILIRUBIN NEGATIVE (NEGATIVE); URINE COLOR YELLOW; URINE GLUCOSE (UA) NEGATIVE (NEGATIVE); URINE KETONE NEGATIVE (NEGATIVE); URINE LEUK ESTERASE NEGATIVE (NEGATIVE); URINE NITRITE NEGATIVE (NEGATIVE); URINE PROTEIN NEGATIVE (NEGATIVE); URINE RBC 4 /hpf (0-4); URINE UROBILINOGEN 0.2 mg/dL (0.2-1.0); URINE WBC 1 /hpf (0-5)
[2019-01-08] MEDS: THIAMINE HCL 100 MG TABLET (FP) PO SCH (21:20)
[2019-01-08] MEDS: MONTELUKAST NA 10 MG TABLET PO SCH (21:20)
[2019-01-09] MEDS: PRENATAL VITAMINS W/ FOLIC ACID TABLET (FP) PO SCH (10:47)
[2019-01-09] MEDS: LOSARTAN POTASSIUM 25 MG TABLET PO SCH (10:47)
[2019-01-09] MEDS: BUDESONIDE/FORMETEROL FUMARATE 80/4.5 mcg INHALER IH SCH ×2 (10:47→21:17)
[2019-01-09] MEDS: ALBUTEROL SO4 8 GM HFA INHALER IH PRN ×2 (10:48→21:17)
[2019-01-09] MEDS: PANTOPRAZOLE 20 MG TABLET (FP) PO SCH (10:51)
[2019-01-09] MEDS: AMMONIUM LACTATE 12% LOTION 225 GM BOTTLE TP SCH (10:52)
[2019-01-09] MEDS: guaiFENesin 200 MG/10 ML 10 ML UNIT-DOSE CUPS PO PRN ×2 (10:55→21:18)
[2019-01-09] MEDS: NICOTINE POLACRILEX 2 MG GUM BC PRN (10:56)
[2019-01-09] MEDS: NICOTINE 14 MG/24 HOURS TOPICAL PATCH TD PRN (10:58)
[2019-01-09] MEDS ORDERED: ARTIFICIAL TEARS (POLYVINYL ALCOHOL) OPTH DROPS OU ONE (11:36)
[2019-01-09] MEDS ORDERED: ARTIFICIAL TEARS (POLYVINYL ALCOHOL) OPTH DROPS OU SCH (14:00)
[2019-01-09] MEDS: ARTIFICIAL TEARS (POLYVINYL ALCOHOL) OPTH DROPS OU SCH ×3 (16:21→21:16)
[2019-01-09] MEDS: MONTELUKAST NA 10 MG TABLET PO SCH (21:17)
[2019-01-09] MEDS: THIAMINE HCL 100 MG TABLET (FP) PO SCH (21:17)
[2019-01-10] MEDS: ALBUTEROL SO4 8 GM HFA INHALER IH PRN ×3 (06:24→21:25)
[2019-01-10] MEDS: PANTOPRAZOLE 20 MG TABLET (FP) PO SCH (10:43)
[2019-01-10] MEDS: LOSARTAN POTASSIUM 25 MG TABLET PO SCH (10:43)
[2019-01-10] MEDS: PRENATAL VITAMINS W/ FOLIC ACID TABLET (FP) PO SCH (10:43)
[2019-01-10] MEDS: AMMONIUM LACTATE 12% LOTION 225 GM BOTTLE TP SCH (10:44)
[2019-01-10] MEDS: BUDESONIDE/FORMETEROL FUMARATE 80/4.5 mcg INHALER IH SCH ×2 (10:44→21:24)
[2019-01-10] MEDS: ARTIFICIAL TEARS (POLYVINYL ALCOHOL) OPTH DROPS OU SCH ×4 (10:46→21:24)
[2019-01-10] MEDS: NICOTINE 14 MG/24 HOURS TOPICAL PATCH TD PRN (10:47)
[2019-01-10] MEDS: NICOTINE POLACRILEX 2 MG GUM BC PRN (10:51)
[2019-01-10] MEDS: guaiFENesin 200 MG/10 ML 10 ML UNIT-DOSE CUPS PO PRN ×2 (10:52→21:26)
[2019-01-10] MEDS: THIAMINE HCL 100 MG TABLET (FP) PO SCH (21:23)
[2019-01-10] MEDS: MONTELUKAST NA 10 MG TABLET PO SCH (21:23)
[2019-01-11 07:24] VITALS: BP 116/80; PULSE 68; TEMP 97.3
[2019-01-11] MEDS: ARTIFICIAL TEARS (POLYVINYL ALCOHOL) OPTH DROPS OU SCH (09:21)
[2019-01-11] MEDS: AMMONIUM LACTATE 12% LOTION 225 GM BOTTLE TP SCH (09:21)
[2019-01-11] MEDS: PANTOPRAZOLE 20 MG TABLET (FP) PO SCH (09:21)
[2019-01-11] MEDS: LOSARTAN POTASSIUM 25 MG TABLET PO SCH (09:21)
[2019-01-11] MEDS: PRENATAL VITAMINS W/ FOLIC ACID TABLET (FP) PO SCH (09:21)
--- NOTE | 2019-01-11 09:22 | DS ---
[facility] Rehab Discharge Summary - [facility] Rehab Discharge Summary Admission Date: 01/06/19 Discharge Date: 01/11/19 - History Present History: Alcohol dependence, Cannabis dependence, Cocaine dependence Additional Comments: Pt is a 53 y/o male with a hx of FLORECITA admitted to rehab after completing detox on . Pt requesting for early discharge today and states "personal" reason. Pt was seen by counselor before exiting and discharge package and recommendation given to patient to follow up with aftercare. Pt was referred to [facility] for CD aftercare and to follow up with primary care at [facility]. Pertinent Past History: Asthma - Discharge Physical Exam Vital Signs: Vital Signs Temperature 97.3 F L 01/11/19 07:23 Pulse Rate 68 01/11/19 07:23 Respiratory Rate 18 01/11/19 07:23 Blood Pressure 116/80 01/11/19 07:23 O2 Sat by Pulse Oximetry (%) Alert o x 3,slender appearance and well groomed. nad oob ambulating with steady gait. cardiac:s1 s2,rrr lungs:cta,[place]. abdomen:soft,nt,nd,+bs extremities/skin:no edema,full ROM,skin intact Pertinent Admission Physical Exam Findings: Laboratory Tests 01/08/19 09:00 Urine Color Yellow Urine Appearance Clear Urine pH 7.0 D Ur Specific [place] 1.016 Urine Protein Negative Urine Glucose (UA) Negative Urine Ketones Negative Urine Blood Trace Urine Nitrite Negative Urine Bilirubin Negative Urine Urobilinogen 0.2 Ur Leukocyte Esterase Negative Urine WBC (Auto) 1 Urine RBC (Auto) 4 Urine Casts (Auto) 0 U Epithel Cells (Auto) 0.2 Urine Bacteria (Auto) 0.5 Unchanged status from admission - Treatment Discharge Condition: Discharge condition good Hospital Course: rehabilitated safely,responded well CD aftercare referral accepted - Medication Discharge Medications: Ambulatory Orders Albuterol Sulfate Inhaler - [Ventolin HFA Inhaler -] 2 inh PO Q4H PRN #1 inhaler 01/06/19 Budesonide/Formeterol Fumarate [SYMBICORT 80/4.5mcg -] 2 puff IH BID #1 inhaler 01/06/19 Losartan Potassium [Cozaar -] 25 mg PO DAILY #14 tablet 01/11/19 Montelukast Na [Singulair -] 10 mg PO HS #14 tablet 01/11/19 Pantoprazole Sodium [Protonix -] 20 mg PO DAILY #14 tab 01/11/19 - Medication-Assisted Treatment (MAT) Medication-Assisted Treatment (MAT): No - Discharge Instructions Diet, activity, other medical instructions: Diet:Regular, ANGELO Activity: oob ad alvaro Other medical instructions:Follow up with CD aftercare recommendations as scheduled. follow up with your primary care provider within 1 week after discharge. - Diagnosis (1) Alcohol dependence Status: Chronic Qualifiers: Substance use status: uncomplicated Qualified Code(s): F10.20 - Alcohol dependence, uncomplicated (2) Cannabis dependence Status: Chronic (3) Cocaine dependence Status: Chronic Qualifiers: Substance use status: uncomplicated Qualified Code(s): F14.20 - Cocaine dependence, uncomplicated (4) Nicotine dependence Status: Chronic Qualifiers: Nicotine product type: cigarettes Substance use status: uncomplicated Qualified Code(s): F17.210 - Nicotine dependence, cigarettes, uncomplicated (5) Asthma Status: Chronic Qualifiers: Asthma severity: mild Asthma persistence: intermittent Asthma complication type: with status asthmaticus Qualified Code(s): J45.22 - Mild intermittent asthma with status asthmaticus (6) GERD (gastroesophageal reflux disease) Status: Chronic Qualifiers: Esophagitis presence: without esophagitis Qualified Code(s): K21.9 - Gastro -esophageal reflux disease without esophagitis (7) [place] (hard of hearing) Status: Chronic Qualifiers: Hearing loss type: unspecified Laterality: left Qualified Code(s): H91.92 - Unspecified hearing loss, left ear - Follow-up Referral Minutes to complete discharge: 20 - AMA Did Patient Leave Against Medical Advice: No Additional Comments: Pt refused to speak to give information to marketing copywriter re:primary care stating " Miss , that's personal. I don't want to give out that information". marketing copywriter asked pt if he has own meds in his belongings before coming to treatment or if he will need Rx and pt responded "why do you keep asking me these personal questions". Dress Operator explained to patient the need for complete information for discharge planning but pt appears to have limited concept of explanation. Pt's Rx was sent to [facility] by detox provider while discharging from detox and was instructed to pick them up but pt told the nurse he does not know that pharmacy. However, this marketing copywriter will reorder cozaar,protonix and singulair and electronically send to his preferred [facility] pharmacy on [address].
[2019-01-11] MEDS: BUDESONIDE/FORMETEROL FUMARATE 80/4.5 mcg INHALER IH SCH (09:23)
== END 2019-01-11 09:45 | disposition home or self-care (01) | DRG 772 ==
LOC: YASAS 14:38 → Y5N 14:39
PROVIDERS: ADMIT Neuromusculoskeletal Medicine & OMM; ATTEND Neuromusculoskeletal Medicine & OMM
PROC: HZ40ZZZ Group Counseling for Substance Abuse Treatment, Cognitive (ICD-10-PCS; principal; 2019-01-06)
DX: F10.20 Alcohol dependence, uncomplicated (principal); F14.20 Cocaine dependence, uncomplicated; F12.20 Cannabis dependence, uncomplicated; F17.210 Nicotine dependence, cigarettes, uncomplicated; J45.22 Mild intermittent asthma with status asthmaticus; K21.9 Gastro-esophageal reflux disease without esophagitis; H91.92 Unspecified hearing loss, left ear; Z88.2 Allergy status to sulfonamides; Z88.8 Allergy status to other drugs, medicaments and biological substances
CPT/HCPCS: 81003